=== PATIENT | male | born 1965 | race Caucasian/White ===

== ENCOUNTER 2016-11-11 15:49 | Observation (INO) | payer OTHER ==
[~2016-11-11] VITALS: Ht 172.7 cm; Wt 103.9 kg
[2016-11-11 16:19] LABS: HEMATOCRIT 46.4 % (38.0-50.0); MCH 29.7 PG (29.0-34.0); MCHC 33.8 G/DL (30.0-36.0); MCV 87.7 FL (86-99); MEAN PLAT.VOLUME 11.3 uM^3 (9.0-12.4); PLATELET COUNT 228 K/uL (156-360); RBC DIS.WIDTH-CV 12.8 % (11.8-14.6); RBC DIS.WIDTH-SD 40.8 % (39-53); RED BLOOD COUNT 5.29 M/uL (4.00-5.50); WHITE BLOOD COUNT 7.6 K/uL (4.1-10.2)
[2016-11-11 16:35] LABS: CHLORIDE 109 mEq/L (99-109); SODIUM 141 mEq/L (136-147)
[2016-11-11 16:36] LABS: ADD MIUA? NO; BILIRUBIN NEGATIVE; BLOOD NEGATIVE; COLOR YELLOW ((YELLOW)); GLUCOSE (STRIP) NEGATIVE; KETONES NEGATIVE; LEUKOCYTES NEGATIVE; NITRITE NEGATIVE; PH, URINE 5.5 (5-8); PROTEIN (STRIP) NEGATIVE; SPECIFIC GRAVITY 1.019 (1.000-1.030); UCUL ADDED? NO; UROBILINOGEN 0.2 MG/DL (0.2-1.0)
[2016-11-11 16:37] LABS: GLUCOSE 87 mg/dL (70-99)
[2016-11-11 16:38] LABS: ANION GAP 12 MEQ/L (2-14)
[2016-11-11 16:39] LABS: TOTAL BILIRUBIN 0.3 mg/dL (0.0-1.0)
[2016-11-11 16:40] LABS: SERUM ETHYL ALCOHOL < 10 mg/dL
[2016-11-11 16:41] LABS: ALKALINE PHOSPHATASE 65 IU/L (3-129)
[2016-11-11 16:42] LABS: TROP-I INTERPRETATION NEGATIVE; TROPONIN-I < 0.01 ng/mL (0.0-0.30); UREA NITROGEN (BUN) 15 mg/dL (9-23)
[2016-11-11 16:44] LABS: GFR ESTIMATE (CALCULATED) > 59 mL/min/
[2016-11-11 17:06] LABS: SAMPLE HEMOLYSIS CHECK 0; SAMPLE ICTERIC CHECK 0; SAMPLE LIPEMIA CHECK 0
[2016-11-11 17:11] LABS: HDL CHOLESTEROL 45 MG/DL (Desirable>=40); LDL CHOLESTEROL 75 mg/dL (Desirable<100); NON-HDL CHOLESTEROL 117 mg/dL (Desirable<160); TOTAL CHOLESTEROL 162 mg/dL (Desirable<200); TRIGLYCERIDES 208 MG/DL (Normal: <150)
[2016-11-11] MEDS ORDERED: CADUET 5/401 TABLET PO (17:34)
[2016-11-11] MEDS ORDERED: CYMBALTA60 MG PO (17:34)
[2016-11-11] MEDS ORDERED: ASPIRIN325 MG PO (17:35)
[2016-11-11 18:44] LABS: Estimated Average Glucose 120 mg/dL (70-123); HEMOGLOBIN A1c (GLYCOHEMOGLOB) 5.8 % HGB (Below 5.7)
[2016-11-11 21:04] LABS: TROP-I INTERPRETATION NEGATIVE; TROPONIN-I < 0.01 ng/mL (0.0-0.30)
[2016-11-11 21:18] VITALS: BP 145/85
[2016-11-12 00:26] VITALS: BP 131/66
[2016-11-12 03:03] LABS: TROP-I INTERPRETATION NEGATIVE; TROPONIN-I < 0.01 ng/mL (0.0-0.30)
[2016-11-12 04:04] VITALS: BP 121/70
[2016-11-12 09:00] VITALS: BP 132/81
[2016-11-12 10:08] LABS: EOSINOPHIL (%) 3.8 % (0-5); EOSINOPHIL COUNT 0.2 K/uL (0-0.3); IMMATURE GRANULOCYTE (%) 0.3 % (0.0-0.7); MCH 30.4 PG (29.0-34.0); MCV 89.6 FL (86-99); MEAN PLAT.VOLUME 11.6 uM^3 (9.0-12.4); MONOCYTE COUNT 0.5 K/uL (0-0.8); NEUTROPHIL (%) 52.6 % (45-76); PLATELET COUNT 212 K/uL (156-360); RBC DIS.WIDTH-SD 42.8 % (39-53); WHITE BLOOD COUNT 5.8 K/uL (4.1-10.2)
[2016-11-12 11:59] VITALS: BP 145/78
== END 2016-11-12 13:08 | disposition home or self-care (01) ==
LOC: EME 15:49 → EDOF 20:05 → 5WEST 21:08
PROVIDERS: Emergency Medicine; Hospitalist; Physician Assistant
DX: F41.8 Other specified anxiety disorders (principal); R47.81 Slurred speech; R94.01 Abnormal electroencephalogram [EEG]; Z79.82 Long term (current) use of aspirin; I10 Essential (primary) hypertension; G47.30 Sleep apnea, unspecified; Z86.73 Personal history of transient ischemic attack (TIA), and cerebral infarction without residual deficits
CPT/HCPCS: 70450; 70496; 70498; 71020; 80053; 80061; 81003; 83036; 84484; 85025; 85027; 93005; 99281; 99285; G0378; G0480